=== PATIENT | male | born 1960 | race Caucasian/White ===

== ENCOUNTER → 2019-12-09 | Outpatient (CLI) | payer MEDICARE, OTHER ==
--- NOTE | 2019-12-09 10:22 | REP ---
INDICATION: PAIN IN LT SHOULDER. COMPARISON: None. TECHNIQUE: Coronal oblique T1, T2 fat sat, sagittal oblique T2 fat sat, axial T2 fat sat, gradient echo. FINDINGS: Rotator cuff: There is mild increased ill-defined high signal on T2 weighted images in the supraspinatus and subscapularis tendons compatible with mild tendinopathy/tendinitis. Acromioclavicular joint: There is mild hypertrophic change at the acromioclavicular joint with a tiny amount of fluid in the joint. Acromion: Type 2 Biceps Tendon: In the bicipital groove with mild surrounding fluid. Hill Sach's deformity: None. Deltoid muscle: Mild linear high signal on T2 weighted images in the lateral deltoid muscle may represent a mild muscle strain. Biceps labral complex: Mild fraying. Labrum: No tear. Cartilage: There is mild chondromalacia at the glenohumeral joint. Bone marrow: There is mild subcortical cystic change in the superolateral humeral head. Joint fluid: No effusion. IMPRESSION: Mild supraspinatus and subscapularis tendinopathy/tendinitis. Mild degenerative changes acromioclavicular joint with a type 2 acromion. Mild fluid surrounding the biceps tendon in the bicipital groove may indicate mild tenosynovitis. Mild linear high signal in the lateral deltoid muscle may represent a mild muscle strain. There appears to be mild fraying of the biceps labral complex without a discrete labral tear. Mild chondromalacia of the glenohumeral joint. Mild subcortical cystic change superolateral humeral head. <Electronically signed by Boo Jordan > 12/09/19 [id number]
== END ==
LOC: M RAD 07:50
PROVIDERS: ATTEND Physician Assistant
DX: M25.512 Pain in left shoulder (principal)

== ENCOUNTER → 2020-04-27 | Outpatient (CLI) | payer MEDICARE, OTHER ==
--- NOTE | 2020-04-27 11:09 | REPVR ---
PROCEDURE INFORMATION: Exam: MR Lumbar Spine Without Contrast Exam date and time: 04/27/2020 10:46 AM Age: 59 years old Clinical indication: Patient HX: Neck and low back pain; Additional info: Lumbar ddd ? herniation / cervicalgia TECHNIQUE: Imaging protocol: Multiplanar magnetic resonance images of the lumbar spine without intravenous contrast. COMPARISON: No relevant prior studies available. FINDINGS: Vertebrae: There is mild degenerative anterior subluxation of L4 over L5. Otherwise,The lumbar vertebral bodies are normal in height,signal intensity and alignment.No acute fracture or dislocation is seen. Spinal epidural space: There is no evidence of epidural masses or hemorrhage. Spinal cord: The conus medullaris is normal. L1-L2: There is no significant degenerative disc herniation.The spinal canal and neural foramina are patent and without significant stenosis. L2-L3: There is no significant degenerative disc herniation.The spinal canal and neural foramina are patent and without significant stenosis. L3-L4: There is no significant degenerative disc herniation.The spinal canal and neural foramina are patent and without significant stenosis. L4-L5: Mildly reduced in height and T2 signal indicating degeneration. Mild adjacent degenerative endplate changes. Small diffuse posterior herniation. Severe facet arthropathy.There is thickening of the ligamentum flavum.There is severe spinal canal stenosis, with an AP canal dimension of 6 mm. There is compression on the thecal sac and crowding of the cauda equina nerve roots at this level.There is moderate bilateral foraminal stenosis. L5-S1: Mildly reduced in height and T2 signal indicating degeneration. Small diffuse posterior herniation.There is a small focus of increased signal intensity posteriorly, consistent with an annular tear. The facet joints demonstrate mild degenerative hypertrophy and sclerosis.There is no evidence of spinal canal narrowing. There is mild bilateral foraminal stenosis. Soft tissues: The prevertebral soft tissues appear normal. IMPRESSION: MRI of the lumbar spine reveals multilevel degenerative spondylitic changes and degenerative disc disease , most significant at L4-L5 level with severe spinal canal stenosis as described above. Electronically signed by: Jeff Burdick On 04/27/2020 11:09:23 AM
--- NOTE | 2020-04-27 11:14 | REPVR ---
PROCEDURE INFORMATION: Exam: MR Cervical Spine Without Contrast Exam date and time: 04/27/2020 10:46 AM Age: 59 years old Clinical indication: Neck pain; Patient HX: Neck and low back pain; Additional info: Lumbar ddd ? herniation / cervicalgia TECHNIQUE: Imaging protocol: Multiplanar magnetic resonance images of the cervical spine without contrast. COMPARISON: No relevant prior studies available. FINDINGS: Vertebrae: The cervical vertebral bodies are normal height and alignment.No acute fracture or dislocation is seen.The atlantoaxial articulation is normal. Spinal cord: The cervical spinal cord is normal in thickness and signal intensity.There is no cord compression or intramedullary signal abnormality. Spinal epidural space: There is no evidence for epidural mass or hemorrhage. C2-C3: No significant disc disease. No significant spinal stenosis. C3-C4: There is a mild diffuse posterior bulge causing mild effacement of the thecal sac.There is bilateral uncovertebral hypertrophic changes.The facet joints demonstrate mild degenerative hypertrophy and sclerosis.There is no evidence of spinal canal narrowing. There is mild bilateral foraminal stenosis. C4-C5: Mildly reduced in height and T2 signal indicating degeneration. There is a mild diffuse posterior bulge causing mild effacement of the thecal sac.There is bilateral uncovertebral hypertrophic changes.The facet joints demonstrate moderate degenerative narrowing and sclerosis. There is no evidence of spinal canal narrowing. There is mild bilateral foraminal stenosis. C5-C6: Mildly reduced in height and T2 signal indicating degeneration. There is a mild diffuse posterior bulge causing mild effacement of the thecal sac.The facet joints demonstrate moderate degenerative narrowing and sclerosis. There is no evidence of spinal canal narrowing. There is moderate bilateral foraminal stenosis. C6-C7: There is a mild diffuse posterior bulge causing mild effacement of the thecal sac.The facet joints demonstrate moderate degenerative narrowing and sclerosis. There is no evidence of spinal canal narrowing. There is moderate bilateral foraminal stenosis. C7-T1: There is no significant degenerative disc herniation.The spinal canal and neural foramina are patent and without significant stenosis. Soft tissues: The prevertebral soft tissues appear normal. Brain: The visualized brain parenchyma is unremarkable. Vertebral arteries: Expected flow voids in the vertebral arteries. IMPRESSION: 1. MRI of the cervical spine reveals multilevel degenerative spondylitic changes and degenerative disc disease as described above. 2. The cervical spinal cord is normal in thickness and signal intensity.There is no cord compression or intramedullary signal abnormality. Electronically signed by: Jeff Burdick On 04/27/2020 11:14:10 AM
== END ==
LOC: M RAD 09:26
PROVIDERS: ATTEND Physician Assistant
DX: M51.36 Other intervertebral disc degeneration, lumbar region (principal); M50.21 Other cervical disc displacement, high cervical region; M50.221 Other cervical disc displacement at C4-C5 level; M50.222 Other cervical disc displacement at C5-C6 level

== ENCOUNTER → 2020-09-22 | Outpatient (CLI) | payer OTHER, MEDICARE ==
--- NOTE | 2020-09-22 10:42 | REPVR ---
PROCEDURE INFORMATION: Exam: MR Lumbar Spine Without Contrast Exam date and time: 09/22/2020 8:02 AM Age: 60 years old Clinical indication: Low back pain; Additional info: Lumbar back pain TECHNIQUE: Imaging protocol: Multiplanar magnetic resonance images of the lumbar spine without intravenous contrast. COMPARISON: MRI-Spine, L.S. without con 04/27/2020 10:10 AM FINDINGS: Vertebrae: Mild levoscoliosis of lumbar spine. 4 mm anterolisthiasis of L3 on L4. No acute fracture. Spinal cord: Normal signal. No cord compression. L1-L2: No significant disc disease. No significant spinal canal stenosis. No neural foraminal stenosis. L2-L3: Diffuse disc buldge with bilateral faucet joint arthropathy. No significant spinal canal stenosis. No neural foraminal stenosis. L3-L4: Diffuse disc buldge, bilateral faucet joint arthropathy. No significant spinal canal stenosis. Mild bilateral neural foraminal stenosis, right greater than left. L4-L5: 4 mm anterolisthiasis of L3 on [id number] disc space, diffuse disc buldge with small central and right paracentral disc protusion and bilateral faucet joint arthopathy resulting in moderate central spinal canal stenosis, right lateral recess narrowing, moderate right and small left neural narrowing. L5-S1: Diffuse disc buldge with annular fissure, bilateral faucet joint arthropathy. No significant spinal canal stenosis. Mild bilateral neural foraminal stenosis, right greater than left. Soft tissues: Unremarkable. Right Kidney: 23 x 18 mm right renal cyst. IMPRESSION: L3-L4: Diffuse disc buldge, bilateral faucet joint arthropathy. No significant spinal canal stenosis. Mild bilateral neural foraminal stenosis, right greater than left. L4-L5: 4 mm anterolisthiasis of L3 on L4 uncovering disc space, diffuse disc buldge with small central and right paracentral disc protusion and bilateral faucet joint arthopathy resulting in moderate central spinal canal stenosis, right lateral recess narrowing, moderate right and small left neural narrowing. L5-S1: Diffuse disc buldge with annular fissure, bilateral faucet joint arthropathy. No significant spinal canal stenosis. Mild bilateral neural foraminal stenosis, right greater than left. Electronically signed by: Lily Craft On 09/22/2020 10:42:12 AM
== END ==
LOC: M RAD 07:37
PROVIDERS: ATTEND Nurse Practitioner Family
DX: M51.26 Other intervertebral disc displacement, lumbar region (principal); M51.27 Other intervertebral disc displacement, lumbosacral region; N28.1 Cyst of kidney, acquired; M43.16 Spondylolisthesis, lumbar region

== ENCOUNTER → 2020-10-17 | Outpatient (CLI) | payer OTHER, MEDICARE ==
--- NOTE | 2020-10-17 09:05 | REP ---
INDICATION: NECK AND BACK PAIN. COMPARISON: None. TECHNIQUE: Eight views including flexion extension lateral views. FINDINGS: Lateral views done in flexion extension and neutral position show normal alignment. Vertebral body heights are preserved. No subluxation or instability is seen. Swimmer's lateral view shows normal alignment in these cervicothoracic junction. There is early degenerative disc spurring at C4-5 and C5-6. Prevertebral soft tissues are unremarkable. On oblique radiographs there is minimal uncovertebral spurring bilaterally at C5-6. Neural foramina appear adequate. There is mild osteoarthritic facet hypertrophy in the midcervical spine. Vascular calcification is observed in the region of the carotid bifurcations bilaterally. Open mouth odontoid view is unremarkable. IMPRESSION: Mild degenerative disc and osteoarthritic facet changes as noted above. Vascular calcification. <Electronically signed by Sincere Jackson > 10/17/20 [id number]
--- NOTE | 2020-10-17 09:13 | REP ---
INDICATION: NECK AND BACK PAIN. COMPARISON: Comparison lumbar spine MR study is from September 22, 2020. TECHNIQUE: Five views of the lumbar spine are provided. FINDINGS: Lumbar vertebral body heights are preserved. There is no evidence of spondylolysis. However, there is a mild degenerative L4-5 spondylolisthesis due to degenerative disc and osteoarthritic facet changes. This measures 5 mm and is unchanged. There is mild discogenic spurring at each lumbar level. Disc spaces are maintained except at L4-5 where there is mild narrowing. There is osteoarthritic facet hypertrophy at 4 5 and 5 1 bilaterally mild in degree. Psoas margins are symmetric. There are clips in right upper quadrant the abdomen consistent with cholecystectomy. There appears to be a intrarenal calculus in the lower pole of the left kidney measuring 9 mm in greatest diameter. Sacrum and SI joints are intact. Psoas margins are symmetric. IMPRESSION: Degenerative disc and osteoarthritic facet changes. 5 mm degenerative grade 1 L4-5 spondylolisthesis again seen. Intrarenal nephrolithiasis left kidney. <Electronically signed by Sincere Jackson > 10/17/20 [id number]
== END ==
LOC: M PLAIMG 08:03
PROVIDERS: ATTEND Neurological Surgery
DX: M50.321 Other cervical disc degeneration at C4-C5 level (principal); M50.322 Other cervical disc degeneration at C5-C6 level; M47.892 Other spondylosis, cervical region; M51.36 Other intervertebral disc degeneration, lumbar region; M43.16 Spondylolisthesis, lumbar region; N20.0 Calculus of kidney

== ENCOUNTER → 2020-11-08 | Outpatient (CLI) | payer OTHER, MEDICARE ==
--- NOTE | 2020-11-08 17:05 | DEXAMM ---
INDICATION: CHRONIC MIDLINE BACK PAIN UNSPEC BACK LOCATION. COMPARISON: None. TECHNIQUE: Bone density was measured using dual-energy x-ray absorptionmetry (DEXA). FINDINGS: AP SPINE L1-L4 BMD 1.255 g/cm2 Young Adult T-Score 0.3 Age Matched Z-Score 0.3. LT FEMUR, TOTAL BMD 1.045 g/cm2 Young Adult T-Score 0.3 Age Matched Z-Score 0.1. LT NECK BMD 0.901 g/cm2 Young Adult T-Score -1.0 Age Matched Z-Score -0.4. RT FEMUR, TOTAL BMD 1.087 g/cm2 Young Adult T-Score 0.6 Age Matched Z-Score 0.4. RT NECK BMD 0.919 g/cm2 Young Adult T-Score -0.9 Age Matched Z-Score -0.2. IMPRESSION: There is normal bone density of the spine. There is low bone density of the left hip. There is normal bone density of the right hip. FOLLOW-UP: Recommendation for the next bone density exam: 2-5 years.. <Electronically signed by Sincere Jackson > 11/08/20 [id number]
== END ==
LOC: M WHC 13:30
PROVIDERS: ATTEND Neurological Surgery
DX: M54.9 Dorsalgia, unspecified (principal); G89.29 Other chronic pain

== ENCOUNTER → 2020-11-27 | Outpatient (CLI) | payer MEDICARE, OTHER ==
--- NOTE | 2020-11-28 14:23 | REPVR ---
PROCEDURE INFORMATION: Exam: MR Thoracic Spine Without Contrast Exam date and time: 11/27/2020 8:58 AM Age: 60 years old Clinical indication: Pain in thoracic spine; Without myelpathy or radiculopathy; Additional info: Back pain TECHNIQUE: Imaging protocol: Multiplanar magnetic resonance images of the thoracic spine without contrast. COMPARISON: MRI-Spine, L.S. without con 09/22/2020 7:53 AM FINDINGS: Vertebrae: See "Discs/Spinal canal/Neural foramina" finding. Spinal cord: Spinal cord terminates at L1 and shows normal signal throughout. Discs/Spinal canal/Neural foramina: There is disc desiccation except sparing T10-T11 through L1-L2. Vertebral body heights are maintained. No acute fracture. There are mild endplate degenerative changes scattered in thoracic spine. There is minimal thoracic disc bulging without focal protrusion. No spinal canal stenosis or cord impingement. No neural foraminal narrowing. There mild costovertebral degenerative changes as visualized. Soft tissues: Unremarkable. Kidneys and ureters: There is simple appearing 2.2 cm right renal cyst. Vasculature: Descending aorta normal caliber without aneurysm. IMPRESSION: No acute or chronic compression fracture. Minimal disc bulging. There is no cord compression. There is no evidence of spinal stenosis or neural foraminal narrowing. Electronically signed by: Rachel Katz On 11/28/2020 14:22:35 PM
== END ==
LOC: M RAD 07:56
PROVIDERS: ATTEND Neurological Surgery
DX: M54.9 Dorsalgia, unspecified (principal)

== ENCOUNTER → 2021-05-10 | Outpatient (REF) | payer MEDICARE ==
[2021-05-10 14:18] LABS: APPEARANCE, URINE CLEAR (CLEAR); BACTERIA, URINE AUTO NEGATIVE (NEGATIVE); BILIRUBIN, URINE AUTO NEGATIVE (NEGATIVE); BLOOD, URINE BLOOD NEGATIVE (NEGATIVE); COLOR, URINE YELLOW (YELLOW); GLUCOSE, URINE (UA) AUTO 1+ mg/dL (NEGATIVE); KETONE, URINE AUTO TRACE mg/dL (NEGATIVE); LEUKOCYTE ESTERASE, URINE AUTO NEGATIVE (NEGATIVE); MUCUS, URINE SMALL (NEGATIVE); NITRITE, URINE AUTO NEGATIVE (NEGATIVE); PROTEIN, URINE AUTO NEGATIVE (NEGATIVE); RBC, URINE AUTO 0 /HPF (0-3); SPECIFIC GRAVITY URINE AUTO 1.021 (1.002-1.035); SQUAMOUS EPITHELIAL CELL UR AU 0 /HPF (0-6); UROBILINOGEN, URINE AUTO 0.2 mg/dL (0.0-2.0); WBC, URINE AUTO 0 /HPF (0-3)
== END ==
LOC: M SMT 12:58
PROVIDERS: ATTEND Nurse Practitioner Women's Health
DX: R35.1 Nocturia (principal)

== ENCOUNTER → 2021-06-21 | Outpatient (REF) | payer MEDICARE ==
[2021-06-21 14:02] LABS: APPEARANCE, URINE CLEAR (CLEAR); BACTERIA, URINE AUTO NEGATIVE (NEGATIVE); BILIRUBIN, URINE AUTO NEGATIVE (NEGATIVE); BLOOD, URINE BLOOD NEGATIVE (NEGATIVE); CALCIUM OXALATE CRYSTALS SMALL; COLOR, URINE YELLOW (YELLOW); GLUCOSE, URINE (UA) AUTO 3+ mg/dL (NEGATIVE); KETONE, URINE AUTO TRACE mg/dL (NEGATIVE); LEUKOCYTE ESTERASE, URINE AUTO NEGATIVE (NEGATIVE); NITRITE, URINE AUTO NEGATIVE (NEGATIVE); PROTEIN, URINE AUTO NEGATIVE (NEGATIVE); RBC, URINE AUTO 0 /HPF (0-3); SPECIFIC GRAVITY URINE AUTO 1.029 (1.002-1.035); SQUAMOUS EPITHELIAL CELL UR AU 0 /HPF (0-6); UROBILINOGEN, URINE AUTO 0.2 mg/dL (0.0-2.0); WBC, URINE AUTO 0 /HPF (0-3)
== END ==
LOC: M SMT 13:05
PROVIDERS: ATTEND Urology
DX: R39.15 Urgency of urination (principal)

== ENCOUNTER → 2021-07-31 | Outpatient (CLI) | payer OTHER | LOC: M PLAIMG 12:46 | PROVIDERS: ATTEND Neurological Surgery | DX: M50.223 Other cervical disc displacement at C6-C7 level (principal); M50.222 Other cervical disc displacement at C5-C6 level; M50.221 Other cervical disc displacement at C4-C5 level; M50.21 Other cervical disc displacement, high cervical region; G95.9 Disease of spinal cord, unspecified ==

== ENCOUNTER → 2022-07-16 | Outpatient (REF) | payer MEDICARE | LOC: M LABSMT 10:12 | PROVIDERS: ATTEND Urology | DX: N40.1 Benign prostatic hyperplasia with lower urinary tract symptoms (principal); Z12.5 Encounter for screening for malignant neoplasm of prostate ==

== ENCOUNTER 2024-12-20 10:31 | Inpatient (IN) | payer MEDICARE ==
[~2024-12-20] VITALS: Ht 182.9 cm; Wt 98.7 kg
[2024-12-20] MEDS ORDERED: ISOVUE-370 76% 100 ML VIAL As Ordered ONE (10:59)
[2024-12-20 11:14] LABS: BASO # 0.1 10^3/uL (0.0-0.2); BASO % 0.7 % (0.0-1.0); EOS # 0.3 10^3/uL (0.0-0.5); EOS % 2.8 % (0.0-3.0); LYMPH # 2.9 10^3/uL (1.5-5.0); LYMPH % 24.7 % (24.0-44.0); MONO # 0.9 10^3/uL (0.0-0.8); MONO % 7.4 % (2.0-8.0); NEUTROPHILS # 7.4 10^3/uL (1.5-8.5); NEUTROPHILS % 63.9 % (36.0-66.0); PLATELET COUNT, AUTOMATED 150 10^3/uL (150-450)
[2024-12-20 11:43] LABS: CALCIUM LEVEL 9.3 MG/DL (8.3-10.6); CARBON DIOXIDE LEVEL 23 MMOL/L (20-31); CHLORIDE LEVEL 102 MMOL/L (98-107); CREATININE FOR GFR 0.77 MG/DL (0.70-1.30); GLOMERULAR FILTRATION RATE > 90.0 (>49); POTASSIUM SERUM 4.1 MMOL/L (3.5-5.1); SODIUM LEVEL 139 MMOL/L (136-145)
[2024-12-20 11:45] LABS: INR 1.02
[2024-12-20] MEDS ORDERED: JANU100T PO (12:46)
[2024-12-20] MEDS ORDERED: GLIP10TA15 PO (12:46)
[2024-12-20] MEDS ORDERED: SIMV40TA20 PO (12:46)
[2024-12-20] MEDS ORDERED: VITA100093 PO (12:46)
[2024-12-20] MEDS ORDERED: HOME MED LIST COMPLETE! XX SCH (12:55)
[2024-12-20] MEDS ORDERED: GLUCOSE 4 GM CHEW PO PRN (14:05)
[2024-12-20] MEDS ORDERED: DEXTROSE 50% 50 ML SYRINGE IV PRN (14:05)
[2024-12-20] MEDS ORDERED: GLUCAGON INJ 1 MG VIAL SC PRN (14:05)
[2024-12-20 14:57] LABS: CHOLESTEROL LEVEL 171 MG/DL (<200); CHOLESTEROL RISK RATIO 4.69 (<5); LDL CHOLESTEROL 97.8 MG/DL (<100); NON-HDL-C 134.6 MG/DL; TRIGLYCERIDES LEVEL 184 MG/DL (<150)
[2024-12-20] MEDS: CLOPIDOGREL 75 MG TAB PO SCH (15:51)
[2024-12-20] MEDS: ASPIRIN 81 MG ENTERIC TABLET PO SCH (15:51)
[2024-12-20 15:59] LABS: ESTIMATED AVERAGE GLUCOSE 252.0 MG/DL (60-110)
[2024-12-20 17:37] VITALS: BP 156/86; TEMP 99; O2SAT 94
[2024-12-20] MEDS: INSULIN LISPRO (NovoLOG) PER UNIT SC SCH ×2 (17:48→21:33)
[2024-12-20 20:28] VITALS: BP 139/74; TEMP 98.7; O2SAT 96
[2024-12-20] MEDS: ATORVASTATIN 20 MG TAB PO SCH (21:31)
[2024-12-20] MEDS: LanTUS (INSULIN GLARGINE INJ) 1 UNITS/0.01 ML SC SCH (21:32)
[2024-12-21 04:41] VITALS: BP 128/76; TEMP 98.4; O2SAT 94
[2024-12-21 06:50] LABS: PLATELET COUNT, AUTOMATED 156 10^3/uL (150-450)
[2024-12-21 07:03] LABS: CALCIUM LEVEL 8.7 MG/DL (8.3-10.6); CARBON DIOXIDE LEVEL 26 MMOL/L (20-31); CHLORIDE LEVEL 103 MMOL/L (98-107); CREATININE FOR GFR 0.69 MG/DL (0.70-1.30); GLOMERULAR FILTRATION RATE > 90.0 (>49); POTASSIUM SERUM 4.2 MMOL/L (3.5-5.1); SODIUM LEVEL 138 MMOL/L (136-145)
[2024-12-21] MEDS: VITAMIN D 1,000 INTERNATIONAL UNITS TABLET PO SCH (08:00)
[2024-12-21] MEDS: ENOXAPARIN 40 MG/0.4 ML SYRINGE (J1650 PER 10MG) SC SCH (08:01)
[2024-12-21 12:18] VITALS: BP 122/80; TEMP 98.3; O2SAT 96
[2024-12-21 19:53] VITALS: BP 125/76; TEMP 98.3; O2SAT 96
[2024-12-22 04:49] VITALS: BP 146/88; TEMP 98.3; O2SAT 92
[2024-12-22 07:17] LABS: PLATELET COUNT, AUTOMATED 153 10^3/uL (150-450)
[2024-12-22 07:41] LABS: ALT/SGPT 38 U/L (7.0-40); AST/SGOT 34 U/L (<34); CALCIUM LEVEL 9.2 MG/DL (8.3-10.6); CARBON DIOXIDE LEVEL 23 MMOL/L (20-31); CHLORIDE LEVEL 104 MMOL/L (98-107); CREATININE FOR GFR 0.67 MG/DL (0.70-1.30); GLOMERULAR FILTRATION RATE > 90.0 (>49); POTASSIUM SERUM 4.3 MMOL/L (3.5-5.1); SODIUM LEVEL 139 MMOL/L (136-145)
[2024-12-22] MEDS: LanTUS (INSULIN GLARGINE INJ) 1 UNITS/0.01 ML SC SCH (08:15)
[2024-12-22] MEDS ORDERED: ATOR80TA59 PO (08:32)
[2024-12-22] MEDS ORDERED: CLOP75TA2 PO (08:32)
[2024-12-22] MEDS ORDERED: ASPI81TAEC PO (08:32)
== END 2024-12-22 10:53 | disposition home or self-care (01) | DRG 65 ==
LOC: M ED 10:31 → M ED INP 14:03 → M MSPAV 17:20
PROVIDERS: ADMIT Internal Medicine; ATTEND Internal Medicine
DX: I63.9 Cerebral infarction, unspecified (principal); I69.359 Hemiplegia and hemiparesis following cerebral infarction affecting unspecified side; E55.9 Vitamin D deficiency, unspecified; I69.320 Aphasia following cerebral infarction; I10 Essential (primary) hypertension; E78.5 Hyperlipidemia, unspecified; E11.9 Type 2 diabetes mellitus without complications; D72.829 Elevated white blood cell count, unspecified; Z91.148 Patient's other noncompliance with medication regimen for other reason; Z66 Do not resuscitate; Z79.899 Other long term (current) drug therapy